=== PATIENT | female | born 1980 | race Two or more races ===

== ENCOUNTER 2017-11-22 17:41 | Emergency (ER) | payer OTHER ==
[~2017-11-22] VITALS: Ht 170.2 cm; Wt 54.4 kg
[2017-11-22 23:36] VITALS: BP 136/100
[2017-11-23] MEDS ORDERED: IBUPROFEN 600 MG TAB PO ONE
[2017-11-23] MEDS ORDERED: HYDROcodone-ACET 5/325MG TAB PO ONE (00:45)
== END 2017-11-23 02:10 | disposition home or self-care (01) ==
LOC: ER 17:46
DX: S16.1XXA Strain of muscle, fascia and tendon at neck level, initial encounter (principal); S33.5XXA Sprain of ligaments of lumbar spine, initial encounter; R51 Headache; Y04.8XXA Assault by other bodily force, initial encounter; Y99.8 Other external cause status; Y92.89 Other specified places as the place of occurrence of the external cause; Y93.89 Activity, other specified
CPT/HCPCS: 70450; 72125; 74176; 81025